=== PATIENT | female | born 1955 | race Caucasian/White ===

== ENCOUNTER 2019-11-25 19:40 | Emergency (ER) | payer MEDICARE ==
[~2019-11-25] VITALS: Ht 170.2 cm; Wt 67.1 kg
[2019-11-25 20:00] VITALS: BP 147/83
--- NOTE | 2019-11-25 20:16 | NUR ---
PT CUT HER LEFT THUMB ON A KNIFE at 730p (30 min ago). Placed bandage at home-on arrival bleeding controlled good cap refill distally no blood thinner PT NOT CURRENT ON HER TDAP.
[2019-11-25] MEDS ORDERED: LIDOCAINE-MPF 1%, 5ML INFIL ONE (20:30)
[2019-11-25] MEDS ORDERED: DIPH,PERTUSS(ACELL),TET VAC/PF 0.5 ML IM-VACC ONE ×2 (20:30→20:42)
[2019-11-25] MEDS ORDERED: LIDOCAINE-MPF 1%, 5ML ONE (20:36)
[2019-11-25] MEDS ORDERED: NEOSPORIN OINT. PKT 1 PACKET ONE (20:36)
--- NOTE | 2019-11-25 20:55 | NUR ---
PT MEDICATED PER ORDERS
[2019-11-25] MEDS ORDERED: NEOSPORIN OINT. PKT 1 PACKET TP ONE (21:00)
== END 2019-11-25 21:24 | disposition home or self-care (01) ==
LOC: ED 21:18
DX: S61.012A Laceration without foreign body of left thumb without damage to nail, initial encounter (principal); W26.0XXA Contact with knife, initial encounter; Y93.89 Activity, other specified; Y92.090 Kitchen in other non-institutional residence as the place of occurrence of the external cause; Y99.8 Other external cause status
CPT/HCPCS: 12041; 90471; 90715; 99284